=== PATIENT | female | born 1990 | race Two or more races ===

== ENCOUNTER 2019-05-28 18:31 | Emergency (ER) | payer SELFPAY ==
[~2019-05-28] VITALS: Ht 154.9 cm; Wt 79.7 kg
[2019-05-28] MEDS ORDERED: ACETAMINOPHEN 325MG TABLET PO STA (22:35)
[2019-05-28] MEDS ORDERED: FLUORESCEIN SODIUM 1MG/STRIP RIGHTEYE STA (23:06)
[2019-05-28] MEDS ORDERED: TETRACAINE 0.5% OPHTH DROPS 4ML RIGHTEYE STA (23:11)
[2019-05-29 02:03] VITALS: BP 121/78
== END 2019-05-29 02:05 | disposition home or self-care (01) ==
LOC: ER 18:31
DX: S00.83XA Contusion of other part of head, initial encounter (principal); Y04.2XXA Assault by strike against or bumped into by another person, initial encounter; Y93.89 Activity, other specified; Y92.511 Restaurant or cafe as the place of occurrence of the external cause
CPT/HCPCS: 81025; 99284